=== PATIENT | female | born 1965 | race Two or more races ===

== ENCOUNTER 2018-07-02 17:55 | Emergency (ER) | payer SELFPAY ==
[~2018-07-02] VITALS: Ht 162.6 cm; Wt 90.0 kg
[2018-07-02] MEDS ORDERED: KETOROLAC 30 MG/1 ML IM ONE (19:30)
[2018-07-02] MEDS ORDERED: LISI2.5T PO (19:30)
[2018-07-02] MEDS ORDERED: DIAZEPAM 5 MG TABLET PO ONE (19:30)
[2018-07-02] MEDS ORDERED: KETOROLAC 30 MG/1 ML ONE (20:11)
[2018-07-02] MEDS ORDERED: DIAZEPAM 5 MG TABLET ONE (20:11)
[2018-07-02] MEDS ORDERED: HYDROmorphone 1 MG/ML, 1ML IM ONE (21:00)
[2018-07-02] MEDS ORDERED: ONDANSETRON ODT 4 MG PO ONE (21:00)
[2018-07-02] MEDS ORDERED: HYDROmorphone 2 MG/ML, 1ML ONE (21:20)
[2018-07-02] MEDS ORDERED: ONDANSETRON ODT 4 MG ONE (21:21)
[2018-07-02 22:03] VITALS: BP 138/88
== END 2018-07-02 22:46 | disposition home or self-care (01) ==
LOC: ED 22:10
DX: M51.36 Other intervertebral disc degeneration, lumbar region (principal); M54.40 Lumbago with sciatica, unspecified side
CPT/HCPCS: 72110; 96372; 99284; J1170; J1885; J7512; Q0162

== ENCOUNTER 2018-07-29 17:55 | Emergency (ER) | payer OTHER ==
[~2018-07-29] VITALS: Ht 154.9 cm; Wt 83.3 kg
[~2018-07-29 17:55] MED LIST: LISI2.5T PO
[2018-07-29 18:51] LABS: ALANINE AMINOTRANSFERASE 28 U/L (12-78); ALBUMIN 3.1 g/dL (3.4-5.0); ANION GAP 11 mmol/L (5-15); CALCIUM 9.2 mg/dL (8.5-10.1); CHLORIDE 105 mmol/L (98-107)
[2018-07-29 18:58] LABS: ALKALINE PHOSPHATASE 137 U/L (45-117); BILIRUBIN,TOTAL 0.4 mg/dL (0.2-1.0); CREATININE 0.93 mg/dL (0.55-1.02)
[2018-07-29 19:23] LABS: BASOPHILS # (AUTO) 0.02 x10^3/uL (0-0.1); BASOPHILS % (AUTO) 0 % (0-1); EOSINOPHILS # (AUTO) 0.25 x10^3/uL (0-0.4); EOSINOPHILS % (AUTO) 2 % (1-7); LYMPHOCYTES # (AUTO) 2.09 x10^3/uL (1-3.4); LYMPHOCYTES % (AUTO) 17 % (22-44); MD SCAN; MEAN CORPUSCULAR HEMOGLOBIN 30.7 pg (27.0-34.8); MEAN CORPUSCULAR VOLUME 90.4 fL (80-100); MEAN PLATELET VOLUME 8.6 fL (7.4-10.4); MONOCYTES % (AUTO) 8 % (2-9); NEUTROPHILS # (AUTO) 8.68 x10^3/uL (1.8-6.8); NEUTROPHILS % (AUTO) 72 % (42-75); PLATELET COUNT 352 x10^3/uL (130-400); RED BLOOD COUNT 4.49 x10^6/uL (3.82-5.3); RED CELL DISTRIBUTION WIDTH 14.4 % (9.6-15.2)
[2018-07-29] MEDS ORDERED: DEXAMETHASONE 4 MG TABLET ONE (19:23)
[2018-07-29] MEDS ORDERED: HYDROcodone/APAP 5/325 TABLET ONE (19:23)
[2018-07-29 19:24] LABS: HEMOGRAM NOTE RECHECKED
[2018-07-29] MEDS ORDERED: DEXAMETHASONE 4 MG TABLET PO ONE (19:30)
[2018-07-29] MEDS ORDERED: HYDROcodone/APAP 5/325 TABLET PO ONE (19:30)
[2018-07-29 20:25] VITALS: BP 138/89
== END 2018-07-29 20:20 | disposition home or self-care (01) ==
LOC: ED 20:05
DX: M79.651 Pain in right thigh (principal); M25.561 Pain in right knee; M79.652 Pain in left thigh; M25.562 Pain in left knee; M25.572 Pain in left ankle and joints of left foot; M25.571 Pain in right ankle and joints of right foot; G89.29 Other chronic pain; E78.5 Hyperlipidemia, unspecified; F32.9 Major depressive disorder, single episode, unspecified; M06.9 Rheumatoid arthritis, unspecified; I10 Essential (primary) hypertension; Z90.89 Acquired absence of other organs
CPT/HCPCS: 36415; 80053; 83690; 85025; 99284